=== PATIENT | female | born 1945 | race African-American/Black ===

== ENCOUNTER 2018-01-30 17:05 | Emergency (ER) | payer OTHER ==
[~2018-01-30] VITALS: Ht 165.1 cm; Wt 87.0 kg
[2018-01-30] MEDS ORDERED: IBUPROFEN 600MG TABLET PO ONE (17:15)
[2018-01-30 19:53] VITALS: BP 166/78
== END 2018-01-30 20:50 | disposition home or self-care (01) ==
LOC: ER 17:27
DX: S09.8XXA Other specified injuries of head, initial encounter (principal); S10.93XA Contusion of unspecified part of neck, initial encounter; I10 Essential (primary) hypertension; V49.09XA Driver injured in collision with other motor vehicles in nontraffic accident, initial encounter; Y93.89 Activity, other specified; Y92.89 Other specified places as the place of occurrence of the external cause; Y99.8 Other external cause status
CPT/HCPCS: 70450; 72125; 99284